=== PATIENT | male | born 1955 | race Caucasian/White ===

== ENCOUNTER 2017-03-21 22:37 | Emergency (ER) | payer MEDICAID ==
[~2017-03-21] VITALS: Ht 180.3 cm; Wt 73.2 kg
[2017-03-21 22:48] VITALS: BP 138/93
[2017-03-21 22:54] VITALS: BP 138/93
[2017-03-21] MEDS ORDERED: ASPI81CT89 PO (22:54)
[2017-03-21] MEDS ORDERED: SIMV10TA1 PO (22:54)
--- NOTE | 2017-03-21 22:55 | NUR ---
PATIENT PRESENTS TO ED WITH C/O BUG BITE LT UPPER ARM AND BACK PT DENIES N/V/D; SKIN IS PINK/WARM/DRY; AAOX4 WITH EVEN AND STEADY GAIT; LUNGS CLEAR BL; HR EVEN AND REGULAR; PT DENIES ANY FEVER, CP, SOB, OR COUGH AT THIS TIME; PATIENT STATES PAIN OF 3/10 AT THIS TIME; VSS; PATIENT POSITIONED FOR COMFORT; HOB ELEVATED; BEDRAILS UP X2; BED DOWN. ER MD MADE AWARE OF PT STATUS.
--- NOTE | 2017-03-21 23:10 | NUR ---
PT TAKEN TO BED 5
--- NOTE | 2017-03-21 23:18 | NUR ---
Dr. Pearson evaluating patient at bedside.
[2017-03-21] MEDS ORDERED: predniSONE 20 MG TAB PO ONE (23:30)
--- NOTE | 2017-03-22 00:08 | NUR ---
Patient discharged with v/s stable. Written and verbal after care instructions given and explained. Patient alert, oriented and verbalized understanding of instructions. Ambulatory with steady gait. All questions addressed prior to discharge. ID band removed. Patient advised to follow up with PMD. Rx of medrol and benadryl given. Patient educated on indication of medication including possible reaction and side effects. Opportunity to ask questions provided and answered.
== END 2017-03-22 00:08 | disposition home or self-care (01) ==
LOC: MED 22:37
DX: T63.301A Toxic effect of unspecified spider venom, accidental (unintentional), initial encounter (principal); Y92.89 Other specified places as the place of occurrence of the external cause; E78.00 Pure hypercholesterolemia, unspecified
CPT/HCPCS: 99283; J7512